=== PATIENT | male | born 1970 | race Two or more races ===

== ENCOUNTER 2018-10-09 22:31 | Emergency (ER) | payer MEDICAID ==
[~2018-10-09] VITALS: Ht 175.3 cm; Wt 77.1 kg
[2018-10-09 22:32] VITALS: BP 156/79
--- NOTE | 2018-10-09 22:41 | Emergency Room Report ---
History of Present Illness General Chief Complaint: Lower Extremity Injury Source: Patient Present Illness [facility] This is a 48-year-old male with a history of seizure. He presents with chief complaint left foot pain. Onset was yesterday. Dropped a wooden box on his foot. Since then has been hurting more. Hurts to walk. He called 911. Pain is 9 out of 10. No other injury. Did not pass out. Allergies: Coded Allergies: No Known Allergies (Unverified , 10/09/18) Patient History Past Medical History: see triage record, old chart reviewed, seizures, psych hx Past Surgical History: other Pertinent Family History: none Social History: Reports: smoking Immunizations: other Reviewed Nursing Documentation: PMH: Agreed; PSxH: Agreed Nursing Documentation-PMH Hx Seizures: Yes Review of Systems Eye: Denies: eye pain, blurred vision ENT: Denies: ear pain, nose congestion, throat swelling Respiratory: Denies: cough, shortness of breath Cardiovascular: Denies: chest pain, palpitations Gastrointestinal: Denies: abdominal pain, diarrhea, nausea, vomiting Musculoskeletal: Reports: joint pain, joint swelling; Denies: back pain Skin: Denies: rash Neurological: Denies: headache, numbness Endocrine: Denies: increased thirst, increased urine Hematologic/Lymphatic: Denies: easy bruising All Other Systems: negative except mentioned in HPI Physical Exam Vital Signs Date Time Temp Pulse Resp B/P (MAP) Pulse Ox O2 Delivery O2 Flow Rate FiO2 10/09/18 22:32 98.4 76 156/79 (104) 98 Room Air Vitals with high blood pressure Sp02 EP Interpretation: reviewed, normal General Appearance: well appearing, no apparent distress, alert Head: normocephalic, atraumatic Eyes: bilateral eye PERRL, bilateral eye EOMI ENT: hearing grossly normal, normal pharynx Neck: full range of motion, supple, no meningismus Respiratory: chest non-tender, lungs clear, normal breath sounds Cardiovascular #1: regular rate, rhythm, no murmur Gastrointestinal: normal bowel sounds, non tender, no mass, no organomegaly, no bruit, non-distended Musculoskeletal: back normal, normal range of motion, other - Foot: He has swelling to the dorsum of the foot. Tenderness to the fifth base of metatarsal bone. pulse Normal. Psychiatric: mood/affect normal Skin: warm/dry Medical Decision Making Diagnostic Impression: Primary Impression: Contusion of left foot Qualified Codes: S90.32XA - Contusion of left foot, initial encounter ER Course Patient with soft tissue injury. No fracture dislocation. Will discharge home. Other X-Ray Diagnostic Results Other X-Ray Diagnostic Results : X-Ray ordered: Left foot x-rays # of Views/Limited Vs Complete: 3 View Indication: Pain EP Interpretation: Yes Interpretation: no dislocation, no soft tissue swelling, no fractures Impression: No acute disease Electronically Signed by: Ranjit Hennessy MD Last Vital Signs Date Time Temp Pulse Resp B/P (MAP) Pulse Ox O2 Delivery O2 Flow Rate FiO2 10/09/18 22:32 98.4 76 156/79 (104) 98 Room Air Status: improved Disposition: HOME, SELF-CARE Condition: Stable Scripts Ibuprofen* (MOTRIN*) 600 Mg Tablet 600 MG ORAL THREE TIMES A DAY, #30 TAB 0 Refills Prov: Ranjit Hennessy MD 10/09/18 Additional Instructions: Elevate foot. Follow-up with your doctor in 7 days. Return if symptoms worsen. Ranjit Hennessy MD Oct 09, 2018 22:41
--- NOTE | 2018-10-09 22:44 | NUR ---
ED Nurse Note: Received report. Pt BIBA from home, AAOx4, c/o left foot pain from injury yesterday 10/08/18 when pt dropped a heavy box on his left foot. Will assess and carry out ER MD's orders. Xrays already taken.
[2018-10-09] MEDS ORDERED: IBUPROFEN600 MG ORAL (23:32)
--- NOTE | 2018-10-09 23:37 | Diagnostic Imaging Report ---
EXAM: XR Left Foot Complete, 3 or More Views CLINICAL HISTORY: TRAUMA TECHNIQUE: Frontal, lateral and oblique views of the left foot. COMPARISON: None FINDINGS: Bones/joints: No displaced fracture or dislocation identified. Osteopenia. Mild degenerative changes of the left first MTP joint. Small plantar and posterior calcaneal spurs. Soft tissues: Soft tissue swelling. IMPRESSION: No displaced fracture or dislocation identified.
--- NOTE | 2018-10-09 23:38 | NUR ---
ED Nurse Note: Pt cleared by health care Provider for discharge. DC instructions/prescription was given and explained to pt and verbalized understanding of teachings. All medical deviecs such as ID band removed. Pt is AAO x4, ambulatory and left with all personal belongings.
== END 2018-10-09 23:37 | disposition home or self-care (01) ==
LOC: EDBD 22:31 → EDUNIT# 22:31 → EMR 23:00
DX: S90.32XA Contusion of left foot, initial encounter (principal); W20.8XXA Other cause of strike by thrown, projected or falling object, initial encounter; Y92.9 Unspecified place or not applicable; F17.200 Nicotine dependence, unspecified, uncomplicated
CPT/HCPCS: 99283